=== PATIENT | male | born 1985 | race Caucasian/White ===

== ENCOUNTER 2021-01-11 19:19 | Emergency (ER) | payer OTHER ==
--- NOTE | 2021-01-11 20:45 | ED ---
General Adult HPI - General Chief complaint: Upper Respiratory Infection Stated complaint: Covid+/Wants antibodies Time Seen by Provider: 01/11/21 20:34 Source: patient, RN notes reviewed Mode of arrival: ambulatory Limitations: no limitations - History of Present Illness Initial comments: This is a well-appearing 28-year-old male that presents to the emergency room after testing positive for Covid today. He states he developed upper respiratory symptoms including cough, congestion and fever yesterday. His employer sent him in after testing him and finding a positive result. He wanted to be reassured that it is truly positive test. He does not want the monoclonal antibodies. He has not been vaccinated. He does not have any medical history a nd does not take medicine on a daily basis. He has been using DayQuil and Advil and his last dose was at 1600 today of Advil. -: days(s) (2) Radiation: non-radiation Severity scale (1-10): 0 Consistency: intermittent Improves with: medication (advil dayquil) Worsens with: none Associated Symptoms: cough, fever/chills, other (congestion) Treatments Prior to Arrival: other (advil dayquil) - Related Data Allergies Allergy/AdvReac Type Severity Reaction Status Date / Time No Known Allergies Allergy Verified 01/11/21 20:29 Review of Systems ROS Statement: Those systems with pertinent positive or pertinent negative responses have been documented in the HPI. ROS Other: All systems not noted in ROS Statement are negative. Past Medical History Past Medical History: No Reported History History of Any Multi-Drug Resistant Organisms: None Reported Additional Past Surgical History / Comment(s): vastectomy Past Psychological History: No Psychological Hx Reported Smoking Status: Light tobacco smoker Past Alcohol Use History: Rare Past Drug Use History: None Reported General Exam Limitations: no limitations General appearance: alert, in no apparent distress Head exam: Present: atraumatic, normocephalic, normal inspection Eye exam: Present: normal appearance, EOMI ENT exam: Present: normal exam, normal oropharynx, mucous membranes moist Neck exam: Present: normal inspection, full ROM. Absent: tenderness, meningismus, lymphadenopathy, thyromegaly Respiratory exam: Present: normal lung sounds bilaterally. Absent: respiratory distress, wheezes, rales, rhonchi, stridor Cardiovascular Exam: Present: regular rate, normal rhythm, normal heart sounds. Absent: systolic murmur, diastolic murmur, rubs, gallop, clicks GI/Abdominal exam: Present: soft, normal bowel sounds. Absent: distended, tenderness, guarding, rebound, rigid Extremities exam: Present: full ROM. Absent: pedal edema Neurological exam: Present: alert, oriented X3 Psychiatric exam: Present: normal affect, normal mood Skin exam: Present: warm, dry, intact, normal color. Absent: rash, cyanosis, diaphoretic Course Vital Signs 01/11/21 01/11/21 20:29 21:22 Temperature 97.9 F 98.8 F Pulse Rate 81 78 Respiratory 16 18 Rate Blood Pressure 120/81 133/83 O2 Sat by Pulse 98 97 Oximetry Medical Decision Making - Medical Decision Making This is a well-appearing 35-year-old male, alert and oriented 4, presents to the emergency room with complaints of cough and fever that started yesterday. He did test covid positive by his employer who sent him here for confirmation of positive test. His coronavirus test is positive here in the emergency room today. His x-ray is clear any signs of infiltrate. Lung sounds are clear to auscultation, oxygen saturation is 98% on room air. He is afebrile in the emergency room. He has no medical history. He was offered monoclonal antibodies and refused. He was advised he can return back to the emergency room for this infusion if he wishes within 10 days of symptom onset. He was directed to self quarantine for 10 days. Symptom onset and 24 hours without a fever. Case discussed with Dr. Grigsby - Lab Data Lab Results 01/11/21 Range/Units 20:43 Coronavirus (PCR) Detected A (Not Detectd) Disposition Clinical Impression: COVID-19 Disposition: HOME SELF-CARE Condition: Good Instructions (If sedation given, give patient instructions): Coronavirus Disease 2019 (COVID-19) Additional Instructions: Self quarantine for 10 days from symptom onset and 24 hours without a fever. Follow-up with the primary care doctor as needed. You can get the monoclonal antibodies infusion if you are interested within 10 days of symptom onset. Return to the emergency room with any new or worsening symptoms. Is patient prescribed a controlled substance at d/c from ED?: No Referrals: None,Stated [Primary Care Provider] - 1-2 days Time of Disposition: 21:07
--- NOTE | 2021-01-11 20:57 | XR ---
EXAMINATION TYPE: XR chest 2V DATE OF EXAM: 01/11/2021 COMPARISON: NONE HISTORY: Fever TECHNIQUE: 2 views FINDINGS: Heart and mediastinum are normal. Lungs are clear. Diaphragm is normal. Bony thorax appears normal. IMPRESSION: Normal chest.
[2021-01-11 21:23] VITALS: BP 133/83; PULSE 78; RESP 18; TEMP 98.8
== END 2021-01-11 21:25 | disposition home or self-care (01) ==
LOC: EC 19:19
DX: U07.1 COVID-19 (principal); F17.200 Nicotine dependence, unspecified, uncomplicated
CPT/HCPCS: 71046; 87635; 99283